=== PATIENT | male | born 2000 | race Caucasian/White ===

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

== ENCOUNTER 2021-06-08 18:47 | Emergency (ER) | payer OTHER, SELFPAY ==
[2021-06-08 19:28] VITALS: BP 125/77; PULSE 68; RESP 18; TEMP 36.9; O2SAT 98
--- NOTE | 2021-06-08 20:07 | ED.GENADUL_ITS ---
Discharge Plan Disposition Patient Disposition: HOME Condition: Stable Discharge Details Clinical Impression: Abdominal pain, Nausea vomiting and diarrhea Primary Care Provider: David Nicole ED Provider: Brigida Cabral Home Meds and New Rx's Prescriptions: No Action sertraline [Zoloft] 50 mg tablet 50 mg PO DAILY 30 Days Qty: 30 RF: 2 Discharge Instructions Instructions: Acute Nausea and Vomiting (ED), Abdominal Pain (ED) Additional Instructions: At this time your work-up is largely within normal limits. However it is concerning that you do have some right lower quadrant abdominal pain. Please return to the ER or be seen sooner if you have continuing worsening pain, fever, continued vomiting despite medication or any concerns. Take the nausea medication 20 to 30 minutes prior to eating or drinking anything. You may consider clear liquids for the next 2 to 3 days. [place] diet as tolerated thereafter. Nothing fried fatty spicy or dairy. Follow up with primary care provider in 2-3 days. Return to ED sooner if any worsening or concerns. Increase oral fluids. Please take Tylenol or Ibuprofen with food every 4-6 hours as needed for pain and swelling. Stand Alone Forms: Work Release Referrals: David Nicole DO [Primary Care Provider] - 3 days (Abdominal Pain) Discharge Data Discharge Date/Time-TO BE ENTERED AT DEPARTURE: 06/08/21 22:00 Medical Decision Making 21-year-old male presents to the ER with chief complaint of nausea vomiting diarrhea for the last 2 to 3 days. He reports intermittent chills. Some pressure in his right upper quadrant. Does have some right lower quadrant tenderness on my initial exam. Denies any problems urinating or burning with urination. Denies any hematochezia or mucus in his stools. Labs ordered including CBC, CMP, urinalysis, CT abdomen pelvis with contrast. Normal saline 1 L Zofran 4 mg ordered. COMPARISON: No relevant prior studies available. FINDINGS: Lungs: Lung bases are unremarkable. Liver: Homogeneously enhances without mass. Gallbladder and bile ducts: No calcified stones, wall thickening or biliary dilatation. Pancreas: No mass or peripancreatic edema. Spleen: Homogeneously enhances. No splenomegaly. Adrenal glands: No adrenal nodule. Kidneys and ureters: Kidneys homogeneously enhance. No hydronephrosis. No renal or ureteral calculi. Stomach and bowel: Stomach is grossly unremarkable. No small or large bowel dilatation. No definite bowel wall thickening. Appendix: No evidence of appendicitis. Intraperitoneal space: There is a tiny amount of free fluid in the pelvis. Vasculature: No abdominal aortic aneurysm. Lymph nodes: No significant adenopathy. Urinary bladder: No definite bladder wall thickening. Reproductive: Unremarkable as visualized. Bones/joints: No significant bony or joint space abnormality. Soft tissues: Extra-abdominal soft tissues are unremarkable. IMPRESSION: 1. No evidence for appendicitis. 2. Tiny amount of free fluid in the pelvis. Otherwise no evidence of acute inflammation. No obstruction. CT results as noted above. Labs are largely unremarkable. No leukocytosis, no left shift, CMP largely within normal limits, small amount of ketones noted in the urine and trace blood. No evidence for UTI culture is not indicated at this time. Patient reevaluation: He reports feeling much better. Abdominal exam reevaluated. He still does have some tenderness to the right lower quadrant with palpation. I did discuss the lab CT result and strict return instructions with mom and patient who verbalized understanding. Plan is to send patient home with Anna. I did discuss that if the abdominal pain continues to worsen or continued vomiting diarrhea to return to the ER or be seen by PCP within the next 2 to 3 days. Mom and patient verbalized understanding. HPI General Mode of arrival: ambulatory . Date/Time Provider Initiated Documentation: 06/08/21 19:44 . Limitations to Documentation: no limitations . Information obtained by: patient and RN notes reviewed . HPI Narrative: 21-year-old male presents to the ER with chief complaint of nausea vomiting diarrhea for the last 2 to 3 days. He reports intermittent chills. Some pressure in his right upper quadrant. Does have some right lower quadrant tenderness on my initial exam. Denies any problems urinating or burning with urination. Denies any hematochezia or mucus in his stools. Related Data Home Medications Medication Instructions Recorded Confirmed sertraline 50 mg tablet 50 mg PO DAILY 30 Days #30 tab 01/20/21 06/08/21 Previous Rx's Medication Instructions Recorded sertraline 50 mg tablet 50 mg PO DAILY 30 Days #30 tab 01/20/21 Allergies Allergy/AdvReac Type Severity Reaction Status Date / Time No Known Allergies Allergy Verified 06/08/21 19:33 General Stated Complaint: Nausea/Vomit/Diar ARIA: 3 Review of Systems All systems reviewed & are unremarkable except as noted in HPI and below Gastrointestinal Gastrointestinal: Reports abdominal pain, Reports diarrhea, Reports nausea and Reports vomiting [facility] Medical History Anxiety (09/15/17) Attention deficit disorder with hyperactivity syndrome Depression History of dental surgery History of placement of ear tubes 2002 Hyperventilation syndrome Suicidal ideation Surgical History Myringotomy w/ PE (pressure equalizing) tubes Family History Mother Primary fibromyalgia syndrome Asthma Father Alcohol abuse Depression Grandmother Systemic lupus erythematosus Alcohol abuse maternal aunt Systemic lupus erythematosus Brother Age: 15 Attention deficit hyperactivity disorder (ADHD) Paternal Grandfather Alcohol abuse Cancer Diabetes Hypertension Social History Smoking/Tobacco Use Status: Former Tobacco Use Quit Date: 09/17/20 Pack-years: 1 Tobacco: How many years used: 1 Smoking risk assessment performed?: Yes Alcohol Intake: current Alcohol Intake frequency: holidays/special occasions only Drug use: Socially Substance use type: marijuana Details: no IV drug use Adopted: No Caregiver/Support person: No Foster care: No Household members: family Housing: house Sexually active: Yes Do you think of yourself as: straight/heterosexual Current gender identity: male Do you feel safe at home: Yes Do you feel safe in your relationship?: Yes Exam Narrative Exam Narrative: Constitutional: Alert and oriented x3. Appears stated age. Normal body habitus. Head: Normocephalic, no trauma. Eyes: Pupils PERRLA, Red reflex noted, EOM's intact. Eyelids symmetrical without lesions, discharge, or swelling. ENT: Bilateral TM's WNL, External ear normal to inspection, no mastoid TTP, swelling, or erythema, Nasal turbinates WNL, no nasal discharge. Normal dentition, Posterior pharynx WNL, no exudate. Chest: RRR, Normal S1, S2, distal pulses intact. Resp: Lungs clear to auscultation bilaterally, no wheezes, rales, or rhonchi. Abdomen: Soft, nondistended tenderness with palpation to the right upper quadrant midepigastrium, right lower quadrant. Negative iliopsoas sign negative obturator sign. No palpable masses. Musculoskeletal: Normal gait, 5/5 strength to all four extremities. Skin: No suspicious rashes or lesions. Capillary refill less than 2 sec. Neurologic: Cranial nerves II-XII intact. Alert and oriented x 3. DTR's intact. Hematologic/Lymphatic: No ecchymosis, no lymphadenopathy. Course Vital Signs Vital signs: Vital Signs Temperature 36.9 C 06/08/21 19:28 Pulse 68 06/08/21 19:28 Respiratory Rate 18 06/08/21 19:28 Blood Pressure 125/77 06/08/21 19:28 Pulse Oximetry 98 06/08/21 19:28 Temperature 36.9 C 06/08/21 19:28 Temperature Source Temporal Artery Scan 06/08/21 19:28 Pulse 68 06/08/21 19:28 Respiratory Rate 18 06/08/21 19:28 Respiratory Effort 06/08/21 19:31 Blood Pressure 125/77 06/08/21 19:28 Blood Pressure Position Sitting 06/08/21 19:28 Pulse Oximetry 98 06/08/21 19:28 Oxygen Delivery Method Room Air 06/08/21 19:28 Oxygen Flow Rate 0 06/08/21 19:28 Pain Level 3 06/08/21 19:28
--- NOTE | 2021-06-08 20:12 | DI.CT_ITS ---
Exam(s) CT ABDOMEN PELVIS W EXAM: CT ABDOMEN PELVIS W CLINICAL HISTORY: RLQ abd pain, NVD. TECHNIQUE: Imaging Protocol: Axial computed tomography images with coronal and sagittal reformatted images were created and reviewed CONTRAST MATERIAL: Intravenous: Omnipaque 100cc Oral: None COMPARISON: No exams were available for comparison FINDINGS: VISUALIZED LUNG BASES: No nodules nor pleural effusions evident. ABDOMEN: There is no ascites in the upper abdomen. LIVER: There are no focal hepatic lesions evident. No dilatation of intrahepatic ducts. GALLBLADDER/BILIARY: No obvious gallbladder pathology. CBD is not dilated. PANCREAS: No evidence of pancreatic mass nor dilatation of the pancreatic duct. SPLEEN: Spleen size is upper normal. No splenic lesions evident. Splenic and portal veins are paten t. ADRENALS: There are no significant adrenal masses. KIDNEYS:No cysts evident. No solid renal masses. No calculi nor hydronephrosis.. ABDOMINAL AORTA: Abdominal aorta is not enlarged. LYMPH NODES:There is no retroperitoneal nor paraaortic adenopathy. ABDOMINAL WALL: No evidence of significant anterior abdominal wall nor inguinal hernia. GI: There is no evidence of bowel obstruction, free air, nor abscess. There are multiple slightly prominent lymph nodes in the mesentery, exhibiting average size 6-7 tejas meters. These are also seen in the right lower quadrant. PELVIS: GI: No evidence of appendicitis.No evidence of sigmoid diverticulitis. LYMPH NODES: As above. REPRODUCTIVE: Age-appropriate URINARY BLADDER: No calculi nor obvious masses evident OSSEOUS: No significant osseous lesions. Sacroiliac joints appear unremarkable IMPRESSION: 1. No evidence of appendicitis. No evidence of diverticulitis. No bowel obstruction. No free air. 2. Multiple slightly prominent lymph nodes in mesentery, average size 6-7 millimeters. Spleen size i s upper normal. RADIATION DOSE DELIVERED: 764.71mGy.cm Total DLP DATA REPOSITORY: All CT scans at this facility are submitted to the National Radiology Data Registry (NRDR) Dose Index Registry (DIR) with the [employer] (A[employer]). RADIATION OPTIMIZATION: All CT scans at this facility use at least one of these dose optimization te chniques: automated exposure control; mA and/or kV adjustment per patient size (includes targeted exa ms where dose is matched to clinical indication); or iterative reconstruction.
[2021-06-08] MEDS: Ondansetron 4 MG/2 ML VIAL IVP (20:27)
[2021-06-08] MEDS: Normal Saline 1,000 ML 1000 ML IV (20:27)
[2021-06-08 20:32] LABS: Bilirubin Negative (Negative); Blood Trace-intact (Negative); Clarity Cloudy (Clear); Glucose Negative (Negative); Ketones 15 mg/dL (Negative); Leukocyte Esterase Negative (Negative); Nitrite Negative (Negative); Specific Gravity 1.025 (1.005-1.025); Urobilinogen 0.2 EU/dL (Up TO 0.2)
[2021-06-08 20:34] LABS: Abs Immature Grans 0.02 10^3/uL (0.0-0.06); Absolute Basophil Count 0.03 10^3/uL (0.0-0.2); Absolute Eosinophil Count 0.27 10^3/uL (0.0-0.7); Absolute Lymphocyte Count 1.81 10^3/uL (1.2-3.4); Absolute Monocyte Count 0.73 10^3/uL (0.1-0.8); Absolute Neutrophil Count 6.59 10^3/uL (1.2-6.7); Basophils % 0.3; Eosinophils % 2.9; HCT 44.4 % (40.0-50.0); HGB 15.3 g/dL (13.5-17.5); Immature Grans % 0.2; Lymphocytes % 19.2; MCH 29.3 pg (27.0-33.0); MCHC 34.5 % (32.0-36.0); MCV 85.1 fL (80-95); MPV 10.6 fL (8.0-11.0); Monocytes % 7.7; Neutrophils % 69.7; Nucleated RBC 0 %; Platelet Count 240 10^3/uL (130-400); RBC 5.22 10^6/uL (4.36-5.78); RDW 11.7 % (11.8-14.1); RDW-SD 36.3 fL; WBC 9.45 10^3/uL (4.4-10.8)
[2021-06-08 20:40] LABS: Bacteria Negative HPF (Negative); C & S Indicated? No; Crystals Moderate Amorphous HPF (Negative); Epithelial Cells Negative HPF (Negative); Mucus Negative (Negative); RBC 0-2 HPF (0-2); WBC 0-2 HPF (0-5)
[2021-06-08] MEDS: Omnipaque 350 MG/ML 100 ML BTL IJ (20:44)
[2021-06-08 20:45] LABS: ALT 34 U/L (16-63); AST 26 U/L (15-37); Albumin 4.7 g/dL (3.4-5.0); Alkaline Phosphatase 83 U/L (46-116); Anion Gap 9.7 mmol/L (3-11); BUN 14 mg/dL (7-18); Bilirubin, Total 0.7 mg/dL (0.2-1.0); CO2 28.3 mmol/L (21.0-32.0); Calcium 9.2 mg/dL (8.5-10.1); Chloride 104 mmol/L (98-107); Glucose 95 mg/dL (74-106); Magnesium 2.3 mg/dL (1.8-2.4); Potassium 3.7 mmol/L (3.5-5.1); Sodium 142 mmol/L (136-145); Total Protein 8.2 g/dL (6.4-8.2)
[2021-06-08] MEDS: Normal Saline Flush 10 ML SYR IVP (20:55)
--- NOTE | 2021-06-08 21:32 | DI.VRAD_ITS ---
PROCEDURE INFORMATION: Exam: CT Abdomen And Pelvis With Contrast Exam date and time: 06/08/2021 8:21 PM Age: 21 years old Clinical indication: Nausea and vomiting and other: Diarrhea; Abdominal pain; Localized; Right lower quadrant (rlq); Patient HX: Rlq abd pain, nvd TECHNIQUE: Imaging protocol: Computed tomography of the abdomen and pelvis with contrast. Total images: 1177 Radiation optimization: All CT scans at this facility use at least one of these dose optimization techniques: automated exposure control; mA and/or kV adjustment per patient size (includes targeted exams where dose is matched to clinical indication); or iterative reconstruction. Contrast material: OMNIPAQUE 350; Contrast volume: 100 ml; Contrast route: INTRAVENOUS (IV); COMPARISON: No relevant prior studies available. FINDINGS: Lungs: Lung bases are unremarkable. Liver: Homogeneously enhances without mass. Gallbladder and bile ducts: No calcified stones, wall thickening or biliary dilatation. Pancreas: No mass or peripancreatic edema. Spleen: Homogeneously enhances. No splenomegaly. Adrenal glands: No adrenal nodule. Kidneys and ureters: Kidneys homogeneously enhance. No hydronephrosis. No renal or ureteral calculi. Stomach and bowel: Stomach is grossly unremarkable. No small or large bowel dilatation. No definite bowel wall thickening. Appendix: No evidence of appendicitis. Intraperitoneal space: There is a tiny amount of free fluid in the pelvis. Vasculature: No abdominal aortic aneurysm. Lymph nodes: No significant adenopathy. Urinary bladder: No definite bladder wall thickening. Reproductive: Unremarkable as visualized. Bones/joints: No significant bony or joint space abnormality. Soft tissues: Extra-abdominal soft tissues are unremarkable. IMPRESSION: 1. No evidence for appendicitis. 2. Tiny amount of free fluid in the pelvis. Otherwise no evidence of acute inflammation. No obstruction. Dictated and Authenticated by: Abhinav Vuong MD. Ordering:RITA Allred MD
[2021-06-08 21:56] VITALS: BP 112/64; PULSE 64; RESP 18; O2SAT 97
== END 2021-06-08 22:00 | disposition home or self-care (01) ==
PROVIDERS: Emergency Provider Registered Nurse Emergency; PCP Family Medicine
DX: R11.2 Nausea with vomiting, unspecified (principal); R19.7 Diarrhea, unspecified; R10.31 Right lower quadrant pain; R10.11 Right upper quadrant pain
CPT/HCPCS: 80053; 96361; 96374; 99285; 74177; 81003; 81015; 83735; 85025; 99284; J2405; J3490

== ENCOUNTER 2021-06-10 11:10 | Emergency (ER) | payer OTHER, SELFPAY ==
[2021-06-10 11:31] VITALS: BP 152/81; PULSE 60; RESP 19; TEMP 36.5; O2SAT 100
[2021-06-10] MEDS: Normal Saline 1,000 ML 1000 ML IV (11:40)
[2021-06-10 11:45] LABS: Abs Immature Grans 0.03 10^3/uL (0.0-0.06); Absolute Basophil Count 0.03 10^3/uL (0.0-0.2); Absolute Eosinophil Count 0.09 10^3/uL (0.0-0.7); Absolute Lymphocyte Count 1.31 10^3/uL (1.2-3.4); Absolute Monocyte Count 0.51 10^3/uL (0.1-0.8); Absolute Neutrophil Count 6.77 10^3/uL (1.2-6.7); Basophils % 0.3; HCT 46.4 % (40.0-50.0); HGB 16.3 g/dL (13.5-17.5); Immature Grans % 0.3; MCH 29.7 pg (27.0-33.0); MCHC 35.1 % (32.0-36.0); MCV 84.5 fL (80-95); MPV 10.4 fL (8.0-11.0); Monocytes % 5.8; Neutrophils % 77.6; Nucleated RBC 0 %; Platelet Count 258 10^3/uL (130-400); RBC 5.49 10^6/uL (4.36-5.78); RDW 11.4 % (11.8-14.1); RDW-SD 35.1 fL; WBC 8.74 10^3/uL (4.4-10.8)
--- NOTE | 2021-06-10 11:45 | DI.CT_ITS ---
Exam(s) CT ABDOMEN PELVIS W EXAM: CT ABDOMEN PELVIS W CLINICAL HISTORY: ongoing RLQ pain. TECHNIQUE: Imaging Protocol: Axial computed tomography images with coronal and sagittal reformatted images were created and reviewed CONTRAST MATERIAL: Intravenous: Omnipaque 100cc Oral: None COMPARISON: CT CT ABDOMEN PELVIS W from 06/08/2021 FINDINGS: VISUALIZED LUNG BASES: No nodules nor pleural effusions evident. ABDOMEN: There is no ascites. LIVER: There are no focal hepatic lesions evident . GALLBLADDER/BILIARY: No obvious gallbladder pathology. CBD is not dilated. PANCREAS: No evidence of pancreatic mass nor dilatation of the pancreatic duct. SPLEEN: Spleen is not enlarged. No obvious intrasplenic lesions. Splenic and portal veins are paten t. ADRENALS: There are no significant adrenal masses. KIDNEYS:No cysts evident. No solid renal masses. No calculi nor hydronephrosis.. ABDOMINAL AORTA: Abdominal aorta is not enlarged. LYMPH NODES:There is no retroperitoneal nor paraaortic adenopathy. ABDOMINAL WALL: No evidence of significant anterior abdominal wall nor inguinal hernia. GI: There is no evidence of bowel obstruction, free air, nor abscess. PELVIS: GI: No evidence of appendicitis.Appearance of the sigmoid is unchanged. However, there is some free fluid now evident in the pelvis, more so than previous. This is not a normal finding in a male patie nt. No free air. Appendix appears unremarkable. LYMPH NODES: There is no intrapelvic nor inguinal adenopathy. REPRODUCTIVE: Age-appropriate URINARY BLADDER: No calculi nor obvious masses evident OSSEOUS: No significant osseous lesions. IMPRESSION: 1. Compared to the CT scan of 06/08/2021 there is now small-moderate amount of free fluid in the depe ndent aspect of the pelvis,. This adjacent to the rectosigmoid. No obvious diverticulitis. Appendi x appears unremarkable. Nevertheless, this is an abnormal finding in a male patient. Surgical consu ltation is recommended. 2. No significant findings in the kidneys. No calculi. No hydronephrosis. Urinary bladder appears unremarkable. Report called by myself to ER provider. RADIATION DOSE DELIVERED: 755.53mGy.cm Total DLP DATA REPOSITORY: All CT scans at this facility are submitted to the National Radiology Data Registry (NRDR) Dose Index Registry (DIR) with the [employer] (ACR). RADIATION OPTIMIZATION: All CT scans at this facility use at least one of these dose optimization te chniques: automated exposure control; mA and/or kV adjustment per patient size (includes targeted exa ms where dose is matched to clinical indication); or iterative reconstruction.
[2021-06-10 12:01] LABS: ALT 33 U/L (16-63); AST 18 U/L (15-37); Albumin 4.9 g/dL (3.4-5.0); Alkaline Phosphatase 84 U/L (46-116); Anion Gap 11.9 mmol/L (3-11); BUN 14 mg/dL (7-18); Bilirubin, Total 0.6 mg/dL (0.2-1.0); CO2 25.1 mmol/L (21.0-32.0); Calcium 9.7 mg/dL (8.5-10.1); Chloride 105 mmol/L (98-107); Glucose 98 mg/dL (74-106); Lipase 176 U/L (73-393); Potassium 3.8 mmol/L (3.5-5.1); Sodium 142 mmol/L (136-145); Total Protein 8.5 g/dL (6.4-8.2)
--- NOTE | 2021-06-10 12:24 | ED.GENADUL_ITS ---
Discharge Plan Disposition Patient Disposition: HOME Condition: Stable Discharge Details Clinical Impression: Abdominal pain, C. difficile diarrhea Primary Care Provider: Shanice Davis ED Provider: Brigida Cabral Home Meds and New Rx's Prescriptions: New ondansetron 4 mg tablet,disintegrating 4 mg PO Q8H PRN5 Days Qty: 15 RF: 0 dicyclomine 20 mg tablet 20 mg PO BID PRN (Reason: stomach cramps) Qty: 10 RF: 0 vancomycin 50 mg/mL recon soln 125 mg PO QID 10 Days Qty: 100 RF: 0 metronidazole 500 mg tablet 500 mg PO BID 10 Days Qty: 20 RF: 0 No Action sertraline [Zoloft] 50 mg tablet 50 mg PO DAILY 30 Days Qty: 30 RF: 2 Discharge Instructions Instructions: Gastroenteritis (ED) Additional Instructions: Take the nausea medication as directed 3 times daily 20 minutes before meals as needed for nausea vomiting. May take the dicyclomine for the abdominal pain. If you have greater than 7 episodes of diarrhea in a 24-hour. You may consider taking Imodium. Follow up with primary care provider in 3-5 days. Return to ED sooner if any worsening or concerns. Increase oral fluids. The 2 CT's you had today show no change. There is no evidence of appendicitis your blood work shows no evidence of infection at this time. There is some fluid in your pelvis which can happen with gastroenteritis and/or inflammatory changes. I did speak with Dr. Grullon who is on-call for surgery. Do recommend that he follow-up in their office in the next 3 to 5 days and or primary care provider in the next 2 to 3 days if feeling worse. If you begin to have a fever cannot keep any fluids down any worsening pain. Chills please return. Please discuss getting stool sample and testing done through your primary care provider. Referrals: Shanice Davis MD [Primary Care Provider] - 3 days Bhumi Grullon DO [OSTEOPATHIC DOCTOR] - 1 week Discharge Data Discharge Date/Time-TO BE ENTERED AT DEPARTURE: 06/10/21 18:35 Medical Decision Making <JUSTUS Piedra - Last Filed: 06/11/21 12:19> 21-year-old gentleman presenting for ongoing and worsening, nausea, vomiting, lower abdominal pain. Patient seen in the ER 2 days ago, negative work-up but given his appendicitis precautions returns today because of worsening symptoms. Clinically he has diffuse lower abdominal pain, McBurney point tenderness with rebound discomfort, certainly concerning for appendicitis. He appears well, nontoxic, afebrile. Will obtain routine laboratory values and repeat CT imaging with IV contrast of his abdomen pelvis. Patient denies any dysuria, hematuria, pain radiating down to his penis, testicles, scrotum. Denies penile discharge. Laboratory values are unremarkable for obvious emergent process. Patient reports pain is worsening, requesting pain medication. Given [address] imaging reveals small-moderate amount of free fluid in the dependent aspect of the pelvis, surgical consultation is recommended Case discussed with Dr. Grullon, recommends repeating CT imaging with p.o. contrast. I discussed this plan with patient, discussed that this would be his third CT imaging in the past 48 hours, risks and benefits discussed, patient agreeable to repeat CT imaging Medical Records Medical records reviewed: Yes I reviewed the patient's medical records. Imaging Data Radiologic Study: Attestation: I personally reviewed and interpreted this imaging study as follows: Imaging: CT Scan Radiologist's impression: Exam(s) CT ABDOMEN PELVIS W EXAM: CT ABDOMEN PELVIS W CLINICAL HISTORY: ongoing RLQ pain. TECHNIQUE: Imaging Protocol: Axial computed tomography images with coronal and sagittal reformatted images were created and reviewed CONTRAST MATERIAL: Intravenous: Omnipaque 100cc Oral: None COMPARISON: CT CT ABDOMEN PELVIS W from 06/08/2021 FINDINGS: VISUALIZED LUNG BASES: No nodules nor pleural effusions evident. ABDOMEN: There is no ascites. LIVER: There are no focal hepatic lesions evident . GALLBLADDER/BILIARY: No obvious gallbladder pathology. CBD is not dilated. PANCREAS: No evidence of pancreatic mass nor dilatation of the pancreatic duct. SPLEEN: Spleen is not enlarged. No obvious intrasplenic lesions. Splenic and portal veins are patent. ADRENALS: There are no significant adrenal masses. KIDNEYS:No cysts evident. No solid renal masses. No calculi nor hydronephrosis.. ABDOMINAL AORTA: Abdominal aorta is not enlarged. LYMPH NODES:There is no retroperitoneal nor paraaortic adenopathy. ABDOMINAL WALL: No evidence of significant anterior abdominal wall nor inguinal hernia. GI: There is no evidence of bowel obstruction, free air, nor abscess. PELVIS: GI: No evidence of appendicitis.Appearance of the sigmoid is unchanged. However, there is some free fluid now evident in the pelvis, more so than previous. This is not a normal finding in a male patient. No free air. Appendix appears unremarkable. LYMPH NODES: There is no intrapelvic nor inguinal adenopathy. REPRODUCTIVE: Age-appropriate URINARY BLADDER: No calculi nor obvious masses evident OSSEOUS: No significant osseous lesions. IMPRESSION: 1. Compared to the CT scan of 06/08/2021 there is now small-moderate amount of free fluid in the dependent aspect of the pelvis,. This adjacent to the rectosigmoid. No obvious diverticulitis. Appendix appears unremarkable. Nevertheless, this is an abnormal finding in a male patient. Surgical consultation is recommended. 2. No significant findings in the kidneys. No calculi. No hydronephrosis. Urinary bladder appears unremarkable. Report called by myself to ER provider. Lab Data Lab results reviewed: Yes I reviewed the patient's lab results. Labs: Laboratory Tests Range/Units 06/10/21 06/10/21 06/10/21 11:40 11:40 12:35 WBC (4.4-10.8) 10^3/uL 8.74 RBC (4.36-5.78) 10^6/uL 5.49 Hgb (13.5-17.5) g/dL 16.3 Hct (40.0-50.0) % 46.4 MCV (80-95) fL 84.5 MCH (27.0-33.0) pg 29.7 MCHC (32.0-36.0) % 35.1 RDW (11.8-14.1) % 11.4 L Plt Count (130-400) 10^3/uL 258 MPV (8.0-11.0) fL 10.4 Immature Gran % 0.3 Neutrophils % 77.6 Lymphocytes % 15.0 Monocytes % 5.8 Eosinophils % 1.0 Basophils % 0.3 Nucleated RBC % % 0 Absolute Neutrophils (1.2-6.7) 10^3/uL 6.77 H Absolute Lymphocytes (1.2-3.4) 10^3/uL 1.31 Absolute Monocytes (0.1-0.8) 10^3/uL 0.51 Absolute Eosinophils (0.0-0.7) 10^3/uL 0.09 Absolute Basophils (0.0-0.2) 10^3/uL 0.03 Sodium (136-145) mmol/L 142 Potassium (3.5-5.1) mmol/L 3.8 Chloride (98-107) mmol/L 105 Carbon Dioxide (21.0-32.0) mmol/L 25.1 Anion Gap (3-11) mmol/L 11.9 H BUN (7-18) mg/dL 14 Creatinine (0.70-1.30) mg/dL 1.0 Estimated GFR/1.73 m2 (mL/min/1.73m2) >= 60.00 Glucose (74-106) mg/dL 98 Calcium (8.5-10.1) mg/dL 9.7 Total Bilirubin (0.2-1.0) mg/dL 0.6 AST (15-37) U/L 18 ALT (16-63) U/L 33 Alkaline Phosphatase (46-116) U/L 84 Total Protein (6.4-8.2) g/dL 8.5 H Albumin (3.4-5.0) g/dL 4.9 Lipase (73-393) U/L 176 Urine Color (Yellow) Yellow Urine Clarity (Clear) Clear Urine pH (5-8) 8.5 H Ur Specific [place] (1.005-1.025) 1.020 Urine Protein (Negative) mg/dL Negative Urine Ketones (Negative) mg/dL 15 H Urine Blood (Negative) Negative Urine Nitrite (Negative) Negative Urine Bilirubin (Negative) Negative Urine Urobilinogen (Up TO 0.2) EU/dL 0.2 Ur Leukocyte Esterase (Negative) Negative Urine Glucose (Negative) mg/dL Negative <Brigida Cabral - Last Filed: 06/11/21 00:49> Care assumed from provider (JUSTUS Baca) Please see their initial HPI, PE, and documentation. Discussed patient details and case and pending workup and disposition. Patient is hemodynamically stable, and alert and oriented. Exam: CT Abdomen And Pelvis Without Contrast Exam date and time: 06/10/2021 4:23 PM Age: 21 years old Clinical indication: Other: Ab pain free fluid TECHNIQUE: Imaging protocol: Computed tomography of the abdomen and pelvis without contrast. Other technique: GI contrast given. COMPARISON: CT ABDOMEN PELVIS W 06/10/2021 1:31 PM FINDINGS: Liver: Normal. No mass. Gallbladder and bile ducts: There appears to be some debris within the gallbladder versus possible vicarious excretion of contrast material. Pancreas: Normal. No ductal dilation. Spleen: Normal. No splenomegaly. Adrenal glands: Normal. No mass. Kidneys and ureters: Contrast is present in the renal collecting system and bladder. Stomach and bowel: Unremarkable. No obstruction. No mucosal thickening. Appendix: The appendix is well seen, within normal limits. Intraperitoneal space: Free fluid is again seen in the deep pelvis, not significantly changed in amount since previous study. Vasculature: Unremarkable. No abdominal aortic aneurysm. Lymph nodes: Unremarkable. No enlarged lymph nodes. Urinary bladder: Unremarkable as visualized. Reproductive: Unremarkable as visualized. Bones/joints: Unremarkable. No acute fracture. Soft tissues: Unremarkable. IMPRESSION: 1. Probable vicarious excretion of contrast material. Gallbladder debris not excludable. 2. No change free fluid. No additional acute abnormality identified. 1735: Spoke with Dr. Grullon who is on-call for surgery regarding the repeat CT results. I did discuss with her his labs. Patient is requesting more nausea medication 4 mg Zofran ordered. Due to patient's presentation and continued with no white blood cell count no lactic acidosis, and hemodynamic stability w ith being afebrile will have patient follow-up as outpatient with general surgery and/or primary care. Prior to patient's discharge stool was added onto labs including C. 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 2115:After patient was discharged C. difficile results returned as positive. Call made to patient and voicemail left. Will enter a prescription for vanco mycin liquid into his discharge sent to his pharmacy on file. 2126: Prescription sent to pharmacy on file for vancomycin 125 mg twice daily p.o. liquid for 10 days. And Flagyl 500 mg p.o. twice daily x10 days to begin if vancomycin is unavailable at the pharmacy. HPI <JUSTUS Piedra - Last Filed: 06/11/21 12:19> General Mode of arrival: ambulatory . Date/Time Provider Initiated Documentation: 06/10/21 11:24 . Limitations to Documentation: no limitations . Information obtained by: patient . HPI Narrative: 21-year-old gentleman, past medical history of depression, anxiety, migraines, presents to the ER today complaining of nausea, vomiting, lower abdominal pain. Patient states pain has been present for approximately 5 days, seen in the ER 2 days ago, CT unremarkable, given strict return precautions for potential appendicitis. Patient reports that his symptoms have worsened since that time, increased pain, decreased appetite. Patient denies fever, bad food exposure, sick contacts, chest pain, shortness of breath, dysuria, hematuria, pain radiating into his groin, testicles, scrotum, penile discharge, constipation. Reports mild diffuse back discomfort and a couple loose stools. Related Data Home Medications Medication Instructions Recorded Confirmed sertraline 50 mg tablet 50 mg PO DAILY 30 Days #30 tab 01/20/21 06/08/21 dicyclomine 20 mg PO BID PRN #10 tab 06/10/21 metronidazole 500 mg PO BID 10 Days #20 tab 06/10/21 ondansetron 4 mg PO Q8H PRN 5 Days #15 tab 06/10/21 vancomycin 125 mg PO QID 10 Days #100 ml 06/10/21 Previous Rx's Medication Instructions Recorded sertraline 50 mg tablet 50 mg PO DAILY 30 Days #30 tab 01/20/21 dicyclomine 20 mg PO BID PRN #10 tab 06/10/21 metronidazole 500 mg PO BID 10 Days #20 tab 06/10/21 ondansetron 4 mg PO Q8H PRN 5 Days #15 tab 06/10/21 vancomycin 125 mg PO QID 10 Days #100 ml 06/10/21 Allergies Allergy/AdvReac Type Severity Reaction Status Date / Time No Known Allergies Allergy Verified 06/08/21 19:33 General Stated Complaint: Abd Prob ARIA: 3 Review of Systems <JUSTUS Piedra - Last Filed: 06/11/21 12:19> Constitutional Constitutional: Denies fatigue, Denies fever(s) and Denies weakness Cardiovascular Cardiovascular: Denies chest pain and Denies dyspnea Respiratory Respiratory: Denies cough and Denies dyspnea Gastrointestinal Gastrointestinal: Reports abdominal pain, Reports loose stools, Reports nausea and Reports vomiting Genitourinary Genitourinary: Denies dysuria and Denies testicular pain Musculoskeletal Musculoskeletal: Reports back pain Integumentary/Breasts Skin/Breast: Denies rash Neurologic Neurologic: Denies weakness Endocrine Endocrine: Denies fatigue PFS <JUSTUS Piedra - Last Filed: 06/11/21 12:19> Medical History Anxiety (09/15/17) Attention deficit disorder with hyperactivity syndrome Depression History of dental surgery History of placement of ear tubes 2002 Hyperventilation syndrome Suicidal ideation Surgical History Myringotomy w/ PE (pressure equalizing) tubes Family History Mother Primary fibromyalgia syndrome Asthma Father Alcohol abuse Depression Grandmother Systemic lupus erythematosus Alcohol abuse maternal aunt Systemic lupus erythematosus Brother Age: 15 Attention deficit hyperactivity disorder (ADHD) Paternal Grandfather Alcohol abuse Cancer Diabetes Hypertension Social History Smoking/Tobacco Use Status: Former Tobacco Use Quit Date: 09/17/20 Pack-years: 1 Tobacco: How many years used: 1 Smoking risk assessment performed?: Yes Alcohol Intake: current Alcohol Intake frequency: holidays/special occasions only Drug use: Socially Substance use type: marijuana Details: no IV drug use Adopted: No Caregiver/Support person: No Foster care: No Household members: family Housing: house Sexually active: Yes Do you think of yourself as: straight/heterosexual Current gender identity: male Do you feel safe at home: Yes Do you feel safe in your relationship?: Yes Exam <JUSTUS Piedra - Last Filed: 06/11/21 12:19> Const General: cooperative, healthy appearing, comfortable and no acute distress Orientation: alert and awake HENMT Head: normal to inspection, normocephalic and atraumatic Mouth: moist mucous membranes Eyes General: appearance normal, both eyes and all related structures Conjunctivae: conjunctivae normal Neck Neck: normal visual inspection, trachea midline and supple Resp Effort & Inspection: normal respiratory effort and able to speak in complete sentences Auscultation: clear to auscultation bilaterally Cardio Rate: regular rate Rhythm: regular rhythm GI Inspection: normal to inspection Palpation: soft, not firm, no guarding, no pulsatile masses and tender in the LLQ, in the RLQ, at McBurney's point and with rebound tenderness Auscultation: normal bowel sounds Back/Spine/Pelvis Back: no CVA tenderness and No back tenderness Skin General skin exam: no rashes or lesions noted Neuro General: patient alert, patient awake, moves all extremities and no focal motor deficits Cognition: normal cognition Speech: speech normal Gait: normal gait Sensory Exam: no sensory deficits noted Extrem General: normal to inspection, full ROM and capillary refill normal Psych Appearance: grossly normal Mental Status: mental status grossly normal Course <JUSTUS Piedra - Last Filed: 06/11/21 12:19> Vital Signs Vital signs: Vital Signs Temperature 36.5 C 06/10/21 11:31 Pulse 60 06/10/21 11:31 Respiratory Rate 19 06/10/21 11:31 Blood Pressure 152/81 H 06/10/21 11:31 Pulse Oximetry 100 06/10/21 11:31 Temperature 36.5 C 06/10/21 11:31 Temperature Source Tympanic 06/10/21 11:31 Pulse 60 06/10/21 11:31 Respiratory Rate 19 06/10/21 11:31 Blood Pressure 152/81 H 06/10/21 11:31 Blood Pressure Position Sitting 06/10/21 11:31 Pulse Oximetry 100 06/10/21 11:31 Oxygen Delivery Method Room Air 06/10/21 11:31 Oxygen Flow Rate 0 06/10/21 11:31 Pain Level 5 06/10/21 11:31 Lab/Test Results Lab/Test Results: Laboratory Tests Range/Units 06/10/21 06/10/21 11:40 11:40 WBC (4.4-10.8) 10^3/uL 8.74 RBC (4.36-5.78) 10^6/uL 5.49 Hgb (13.5-17.5) g/dL 16.3 Hct (40.0-50.0) % 46.4 MCV (80-95) fL 84.5 MCH (27.0-33.0) pg 29.7 MCHC (32.0-36.0) % 35.1 RDW (11.8-14.1) % 11.4 L Plt Count (130-400) 10^3/uL 258 MPV (8.0-11.0) fL 10.4 Immature Gran % 0.3 Neutrophils % 77.6 Lymphocytes % 15.0 Monocytes % 5.8 Eosinophils % 1.0 Basophils % 0.3 Nucleated RBC % % 0 Absolute Neutrophils (1.2-6.7) 10^3/uL 6.77 H Absolute Lymphocytes (1.2-3.4) 10^3/uL 1.31 Absolute Monocytes (0.1-0.8) 10^3/uL 0.51 Absolute Eosinophils (0.0-0.7) 10^3/uL 0.09 Absolute Basophils (0.0-0.2) 10^3/uL 0.03 Sodium (136-145) mmol/L 142 Potassium (3.5-5.1) mmol/L 3.8 Chloride (98-107) mmol/L 105 Carbon Dioxide (21.0-32.0) mmol/L 25.1 Anion Gap (3-11) mmol/L 11.9 H BUN (7-18) mg/dL 14 Creatinine (0.70-1.30) mg/dL 1.0 Estimated GFR/1.73 m2 (mL/min/1.73m2) >= 60.00 Glucose (74-106) mg/dL 98 Calcium (8.5-10.1) mg/dL 9.7 Total Bilirubin (0.2-1.0) mg/dL 0.6 AST (15-37) U/L 18 ALT (16-63) U/L 33 Alkaline Phosphatase (46-116) U/L 84 Total Protein (6.4-8.2) g/dL 8.5 H Albumin (3.4-5.0) g/dL 4.9 Lipase (73-393) U/L 176 Sign Out <JUSTUS Piedra - Last Filed: 06/11/21 12:19> Sign Out Data: Sign Out Comment: Repeat CT imaging of the abdomen and pelvis with oral contrast and then a surgical consultation Last updated by Jordan Navarrete PA at 06/10/21 15:33
[2021-06-10 12:50] LABS: Bilirubin Negative (Negative); Blood Negative (Negative); Clarity Clear (Clear); Glucose Negative (Negative); Ketones 15 mg/dL (Negative); Leukocyte Esterase Negative (Negative); Nitrite Negative (Negative); Urobilinogen 0.2 EU/dL (Up TO 0.2); pH 8.5 (5-8)
--- NOTE | 2021-06-10 15:09 | DI.CT_ITS ---
Exam(s) CT ABDOMEN PELVIS WO EXAM: CT ABDOMEN PELVIS WO CLINICAL HISTORY: abd pain, free fluid on ct. TECHNIQUE: Imaging Protocol: Axial computed tomography images with coronal and sagittal reformatted images were created and reviewed. COMPARISON: CT CT ABDOMEN PELVIS W from 06/10/2021 FINDINGS: ABDOMEN: Lung Bases: Normal where visualized. Liver: Normal density. No measurable mass. Gallbladder and biliary tract: No radiodense calculus or biliary ductal dilation. High-density materi al in the gallbladder is most consistent with the patient's recent CT scan with contrast (vicarious e xcretion of contrast material). Pancreas: Normal density, no abnormal calcifications or inflammatory process. Spleen: Normal. Kidneys: Normal size, contour and axis.No radiodense stones or obstructive uropathy. No masses seen. There is iodinated contrast in the renal collecting system from the patient's recent CT scan. Adrenal glands: No mass is seen. Lymph nodes: Stable. Abdominal Aorta: Abdominal portion non-dilated. PELVIS: Bladder:Symmetric distention, no gross wall thickening. Contrast material is seen within the urinary bladder secondary to the patient's recent CT scan. Bowel: No obstruction or bowel wall thickening. Appendix is unremarkable. Peritoneal cavity: There is a small amount of ascites in the pelvis. It is unchanged compared to the prior examination. No free air. Reproductive organs: Within normal limits. Bones: Within normal limits. Soft Tissues: Within normal limits. IMPRESSION: 1. No change in the amount of free pelvic fluid. 2. No acute abnormality. RADIATION DOSE DELIVERED: 729.15mGy.cm Total DLP DATA REPOSITORY: All CT scans at this facility are submitted to the National Radiology Data Registry (NRDR) Dose Index Registry (DIR) with the [employer] (A[employer]). RADIATION OPTIMIZATION: All CT scans at this facility use at least one of these dose optimization te chniques: automated exposure control; mA and/or kV adjustment per patient size (includes targeted exa ms where dose is matched to clinical indication); or iterative reconstruction.
[2021-06-10] MEDS: Omnipaque 350 MG/ML 100 ML BTL IJ (15:21)
[2021-06-10 15:26] VITALS: BP 119/74; PULSE 54; RESP 17; TEMP 36.8; O2SAT 98
[2021-06-10 15:33] LABS: Lactate 0.6 mmol/L (0.6-1.4)
[2021-06-10 17:08] VITALS: BP 100/54; PULSE 58; RESP 16; O2SAT 97
--- NOTE | 2021-06-10 17:17 | DI.VRAD_ITS ---
PROCEDURE INFORMATION: Exam: CT Abdomen And Pelvis Without Contrast Exam date and time: 06/10/2021 4:23 PM Age: 21 years old Clinical indication: Other: Ab pain free fluid TECHNIQUE: Imaging protocol: Computed tomography of the abdomen and pelvis without contrast. Other technique: GI contrast given. COMPARISON: CT ABDOMEN PELVIS W 06/10/2021 1:31 PM FINDINGS: Liver: Normal. No mass. Gallbladder and bile ducts: There appears to be some debris within the gallbladder versus possible vicarious excretion of contrast material. Pancreas: Normal. No ductal dilation. Spleen: Normal. No splenomegaly. Adrenal glands: Normal. No mass. Kidneys and ureters: Contrast is present in the renal collecting system and bladder. Stomach and bowel: Unremarkable. No obstruction. No mucosal thickening. Appendix: The appendix is well seen, within normal limits. Intraperitoneal space: Free fluid is again seen in the deep pelvis, not significantly changed in amount since previous study. Vasculature: Unremarkable. No abdominal aortic aneurysm. Lymph nodes: Unremarkable. No enlarged lymph nodes. Urinary bladder: Unremarkable as visualized. Reproductive: Unremarkable as visualized. Bones/joints: Unremarkable. No acute fracture. Soft tissues: Unremarkable. IMPRESSION: 1. Probable vicarious excretion of contrast material. Gallbladder debris not excludable. 2. No change free fluid. No additional acute abnormality identified. Dictated and Authenticated by: Pratima Simmons MD. Ordering:FREDI Ortega MD
[2021-06-10] MEDS: Ondansetron 4 MG/2 ML VIAL (17:42)
[2021-06-10 19:52] LABS: C Diff PCR Positive (Negative)
[2021-06-11 23:25] LABS: Campylobacter PCR Negative (Negative); Salmonella PCR Negative (Negative); Shiga Toxin PCR Negative (Negative); Shigella/Enteroinvasive Ecoli Negative (Negative)
== END 2021-06-10 18:35 | disposition home or self-care (01) ==
PROVIDERS: Physician Assistant; Emergency Provider Registered Nurse Emergency
DX: A04.72 Enterocolitis due to Clostridium difficile, not specified as recurrent (principal); R10.9 Unspecified abdominal pain
CPT/HCPCS: 36415; 80053; 83690; 87493; 87505; 96361; 96374; 96375; 99284; 74176; 74177; 81003; 82272; 83605; 85025; 87177; J2405; J3490

== ENCOUNTER 2021-08-11 17:41 | Outpatient (REF) | payer OTHER, SELFPAY | END 2021-08-11 17:42 | disposition home or self-care (01) | LOC: LBN 17:41 | DX: A04.72 Enterocolitis due to Clostridium difficile, not specified as recurrent (principal) | CPT/HCPCS: 87493 ==

== ENCOUNTER 2021-09-04 16:00 | Outpatient (REF) | payer OTHER, SELFPAY ==
[2021-09-04 16:50] LABS: C Diff PCR Negative (Negative)
== END 2021-09-04 16:01 | disposition home or self-care (01) ==
LOC: LBN 16:00
PROVIDERS: Student in an Organized Health Care Education/Training Program
DX: A04.72 Enterocolitis due to Clostridium difficile, not specified as recurrent (principal)
CPT/HCPCS: 87493

== ENCOUNTER 2021-10-01 04:32 | Outpatient (CLI) | payer OTHER, SELFPAY | END 2021-10-01 04:33 | disposition home or self-care (01) | LOC: LBO 04:32 | DX: R63.4 Abnormal weight loss (principal); F41.9 Anxiety disorder, unspecified; F32.9 Major depressive disorder, single episode, unspecified | CPT/HCPCS: 36415; 80053; 80061; 80349; 82306; 82784; 83516; 80307; 82728; 83036; 84443; 85025 ==